=== PATIENT | female | born 1955 | race Caucasian/White ===

== ENCOUNTER → 2016-07-06 | Outpatient (CLI) | payer MEDICARE ==
[~2016-07-06] MED LIST: CITALOPRAM HBR40 M1; CLARITIN10 M3; GABAPENTIN400 MG PO; GLUCOPHAGE500 MG; GLUCOTROL10 MG PO; HCTZ PO; HUMALOG MI100 UNIT/6; IBUPROFEN800 MG PO; LEVOXYL200 MC1 PO; LIPITOR40 MG PO; MULTI VITAMIN1 EACH PO; ST. JOSEPH ASP325 MG PO; TOPROL XL100 MG PO; VITAMIN C1000 M2 PO; ZESTRIL40 MG PO
--- NOTE | ~2016-07-06 | CR63 ---
[facility] A Service of [facility] & [facility] RADIOLOGY TEXT RESULTS PATIENT: AGUSTIN SOTO LOCATION: [facility] : 59 UNIT #: [id number] AGE: [address]: Fernando Correa MD SEX: F ORDER DR: [id number] [facility] [address] [place], [place] [address] [id number] O MR#: [id number] Acc #: [id number] NAME: AGUSTIN SOTO. : 1955 SEX: F STUDY DATE/TIME: 07/06/2016 8:17 UNIT: [facility] ROOM: STUDY DESCRIPTION: CR Chest 2 View Attending Physician: Fernando Correa M.D. Referring Physician: Fernando Correa M.D. Ordering Physician: Fernando Correa M.D. Primary Care Physician: Jodie Bradley A.P.R.N. MEDICAL IMAGING REPORT This report is preliminary unless electronic signature is present EXAM Two-view chest, 07/06/2016 HISTORY 60-year-old female for preoperative respiratory clearance prior to gastric Lap-Band surgery and possible paraesophageal hernia repair. Morbid obesity. Essential hypertension. Shortness of breath. COMPARISON Chest, 08/07/2008 FINDINGS 2 views of the chest demonstrate clear lungs. No pleural effusion or pneumothorax. Heart size and mediastinum are normal. Pulmonary vasculature normal. IMPRESSION No acute cardiopulmonary findings. Dictated by... Chris Marie M.D. THIS IS AN ELECTRONICALLY VERIFIED REPORT Chris Marie M.D. at 07/06/2016 6:37 PM Deepa TD: 07/06/2016 11:25 JOB #: [id number] MEDICAL IMAGING REPORT Page 1 of 1 COPY
--- NOTE | ~2016-07-06 | EKG ---
PATIENT: AGUSTIN SOTO UNIT #: [id number] Ventricular Rate: 99 BPM Atrial Rate: 99 BPM P-R Interval: 150 ms QRS Duration: 92 ms Q-T Interval: 368 ms QTC Calculation(Bezet): 472 ms P [place]: 65 degrees Calculated R [place]: -14 degrees Calculated T [place]: 52 degrees Diagnosis Line: Normal sinus rhythm Diagnosis Line: Cannot rule out Anterior infarct , age Diagnosis Line: undetermined Diagnosis Line: Abnormal ECG Diagnosis Line: No previous ECGs available Diagnosis Line: Confirmed by GENEVA KUNZ MD ([id number]) on Diagnosis Line: 07/06/2016 4:39:09 PM INTERPRETING MD: ZE MORENO
--- NOTE | ~2016-07-06 | CR97 ---
[facility] A Service of [facility] RADIOLOGY TEXT RESULTS PATIENT: AGUSTIN SOTO LOCATION: [facility] : 59 UNIT #: [id number] AGE: [address]: Fernando Correa MD SEX: F ORDER DR: [id number] [place] [id number] [facility] [place], [place] [address] [id number] O MR#: [id number] Acc #: [id number] NAME: AGUSTIN SOTO. : 1955 SEX: F STUDY DATE/TIME: 07/06/2016 8:40 UNIT: [facility] ROOM: STUDY DESCRIPTION: CR Esophagram Attending Physician: Fernando Correa M.D. Referring Physician: Fernando Correa M.D. Ordering Physician: Fernando Correa M.D. Primary Care Physician: Jodie Bradley A.P.R.N. MEDICAL IMAGING REPORT This report is preliminary unless electronic signature is present EXAM Esophagram 07/06/2016 INDICATIONS 60-year-old female presenting for preop evaluation for lap-band placement. Morbid obesity. Hypertension, short of breath. Symptoms began today. TECHNIQUE Spot fluoroscopic views of the esophagus were obtained in various projections after the patient ingested gas crystals and thick and thin liquid barium on 07/06/2016. COMPARISON STUDIES No comparisons. FINDINGS The notes indicate 1.4 minutes of fluoroscopy time was used in the case. Approximately 72 spot fluoroscopic views from the procedure were saved to the DR PACS. The esophagus demonstrates an unremarkable primary stripping wave. No significant secondary or tertiary contractions identified. No focal stricture, mucosal abnormality or esophageal mass. No hiatal hernia. IMPRESSION 1. Essentially negative esophagram. Notes indicate 1.4 minutes of fluoroscopy time was used in the case. Approximately 72 spot fluoroscopic views saved to the DR PACS. Dictated by... Claude Hernandez M.D. [facility] A Service [facility] RADIOLOGY TEXT RESULTS PATIENT: AGUSTIN SOTO LOCATION: [facility] : 59 UNIT #: [id number] AGE: [address]: Fernando Correa MD SEX: F ORDER DR: THIS IS AN ELECTRONICALLY VERIFIED REPORT Claude Hernandez M.D. at 07/08/2016 5:40 PM KELLIE/mariam TD: 07/06/2016 18:25 JOB #: [id number] MEDICAL IMAGING REPORT Page 1 of 1 COPY
[2016-07-06 09:47] LABS: HEMATOCRIT 39.9 % (35.0-45.0); HEMOGLOBIN 12.7 gm/dL (12.0-16.0); MEAN CELL VOLUME 89.6 FL (83-96); MEAN CORPUSCULAR HEMOGLOBIN 28.4 PG (28-34); MEAN CORPUSCULAR HGB CONC 31.7 g/dL (30-36); MEAN PLATELET VOLUME 8.4 FL (6.5-11.5); RED BLOOD COUNT 4.46 X10e (3.90-5.30); RED CELL DISTRIBUTION WIDTH 14.1 % (11.0-15.5); WHITE BLOOD COUNT 13.9 X10e3 (4.0-10.5)
[2016-07-06 10:32] LABS: ALBUMIN SERUM 3.6 g/dL (3.5-5.0); BILIRUBIN,TOTAL 0.5 mg/dL (0.2-2.0); BUN/CREATININE RATIO 11.66; CALCIUM SERUM 9.6 mg/dL (8.4-10.2); CREATININE SERUM 1.2 mg/dL (0.6-1.4); GLOM FILT RATE Estimated 49.8 mL/min (>60); POTASSIUM 4.7 mmol/L (3.5-5.1); PROTEIN TOTAL SERUM 6.9 g/dL (6.0-8.3)
== END | disposition home or self-care (01) ==
LOC: CAMB 07:50
PROVIDERS: Surgery
DX: Z01.818 Encounter for other preprocedural examination (principal); E66.01 Morbid (severe) obesity due to excess calories
CPT/HCPCS: 36415; 71020; 74220; 80053; 80061; 84443; 85027; 93005

== ENCOUNTER → 2016-07-21 | Day surgery (SDC) | payer MEDICARE ==
--- NOTE | ~2016-07-21 | OR ---
Unit #: [id number] #: [id number] Patient: AGUSTIN SOTO [id number] [address] [address] [id number] O MR#: [id number] NAME: AGUSTIN SOTO ROOM: Date of Procedure: 07/21/2016 Admission Date: 07/21/2016 Surgeon: Fernando Correa M.D. : 1955 Attending Physician: Fernando Correa M.D. Primary Care Physician: Jodie Bradley A.P.R.N. OPERATIVE REPORT PREOPERATIVE DIAGNOSIS Chronic morbid obesity, body mass index of 55. POSTOPERATIVE DIAGNOSES 1. Chronic morbid obesity, body mass index of 55. 2. Paraesophageal hiatal hernia. PROCEDURE PERFORMED 1. Laparoscopic adjustable gastric band. 2. Laparoscopic paraesophageal hiatal hernia repair. VISUALLY IMPAIRED TEACHER Jacob Cornell M.D. ANESTHESIA General endotracheal anesthesia. ESTIMATED BLOOD LOSS Minimal. IV FLUIDS 800 crystalloid. COMPLICATIONS None. INDICATIONS FOR PROCEDURE The patient is a 60-year-old with chronic morbid obesity. DESCRIPTION OF PROCEDURE The patient was taken to the operating room and placed in supine position. General anesthesia was induced. The abdomen was prepped and draped. A 3-cm incision was then made left of the midline. A 10-mm Visiport was then placed intraabdominal under direct vision. The abdomen was insufflated to 15 mmHg with CO2. The patient was then placed in a steep reversed Trendelenburg. General inspection of the abdomen revealed what appeared to be a paraesophageal hernia. This was identified with a defect at the diaphragm using anterior palpation with the instrument. We then made a small incision in the subxiphoid region. A Elodia liver retractor was then placed intraabdominal and used to retract the left lobe of the liver upward to further expose the paraesophageal hernia and GE junction. I then placed a 5-mm port in the right upper quadrant, a 10-mm Unit #: [id number] #: [id number] Patient: AGUSTIN SOTO port in the left upper quadrant, and another 5-mm port in the left lower quadrant. The stomach was retracted medial and downward. Upon retracting the stomach, we took down the paraesophageal ligament, exposing the right and left aldair at the paraesophageal hernia. Any hernia sac was reduced. We then repaired the paraesophageal hernia using interrupted #0 Ethibond sutures in a unvxis-tc-brtew type fashion. This formed a snug repair to the anterior esophagus. We then retracted the stomach medially and further exposed the angle of His using Bovie electrocautery. The stomach was then retracted laterally. We then took down the hepatogastric ligament with Bovie electrocautery. This exposed the right aldair. Using blunt dissection, I created a retrogastric tunnel from this point to the angle of His. The band was then placed intraabdominal through the 10-mm port site. This was then brought through the retrogastric tunnel in a pars flaccida technique. The band was then closed anteriorly to form a 20-mL to 25-mL anterior gastric pouch. The fundus was then secured to the anterior pouch to prevent movement around the stomach using two interrupted #0 Ethibond sutures. A third suture was then used as a gathering stitch from the lesser curve to the anterior stomach, gathering and imbricating the remaining fundus of the stomach. The tubing was then brought out through the midline 10-mm port site. All ports and the Elodia liver retractor were removed under direct vision with no evidence of abdominal hemorrhage. A polypropylene mesh was then secured to the posterior face of the laparoscopic band port. This was secured using #0 Ethibond suture. This was then cut to shape. The port was then connected to the tubing and placed into a subcutaneous pocket just anterior to the rectus sheath. Its position was then confirmed. All tubing was then placed intraabdominal. The wounds were then closed with interrupted 4-0 Vicryl. The patient tolerated the procedure well and was sent to the recovery room in good condition. Dictated by... Gray Alvarez/daryn TD: 07/21/2016 22:49 JOB #: [id number] OPERATIVE REPORT Page 1 of 1 X Fernando Correa MD X PROCEDURE OPERATIVE NOTE
--- NOTE | ~2016-07-21 | CR7 ---
[facility] A Service of [facility] & [facility] RADIOLOGY TEXT RESULTS PATIENT: AGUSTIN SOTO LOCATION: [facility] : 59 UNIT #: [id number] AGE: [address]: Fernando Correa MD SEX: F ORDER DR: [id number] [facility] [address] [place], [place] [address] [id number] O MR#: [id number] Acc #: [id number] NAME: AGUSTIN SOTO : 1955 SEX: F STUDY DATE/TIME: 07/21/2016 11:19 UNIT: [facility] ROOM: STUDY DESCRIPTION: CR Abdomen Single AP View Attending Physician: Fernando Correa M.D. Ordering Physician: Fernando Correa M.D. Primary Care Physician: Jodie Bradley A.P.R.N. MEDICAL IMAGING REPORT This report is preliminary unless electronic signature is present EXAM Abdomen one-view 07/21/2016 1119 hours HISTORY Morbid obesity. Status post lap-band placement today. Abdominal pain. COMPARISON Preop esophagram 07/06/2016 FINDINGS Single supine view of the abdomen excludes the right flank and the pelvis. There is a new lap-band present overlying the left T11 costovertebral junction oriented at 52 degrees from vertical. Radiopaque tubing courses towards the right and then inferiorly. I cannot clearly define the distal port. No bowel obstruction seen. There is mild linear atelectasis at the left base. IMPRESSION 1. Postop lap-band placement overlying the T11 costovertebral junction oriented at 52 degrees from vertical. Radiopaque tubing courses rightward and then inferiorly with tubing terminating over the lower lumbar spine. I cannot clearly see the port which may be outside the field of view. 2. No bowel obstruction. 3. Linear atelectasis at the left lung base. Dictated by... Flaquita Morrissey M.D. THIS IS AN ELECTRONICALLY VERIFIED REPORT Flaquita Morrissey M.D. at 07/21/2016 2:29 PM VON/[facility] A Service of [facility] & [facility] RADIOLOGY TEXT RESULTS PATIENT: AGUSTIN SOTO LOCATION: [facility] : 59 UNIT #: [id number] AGE: [address]: Fernando Correa MD SEX: F ORDER DR: TD: 07/21/2016 11:50 JOB #: [id number] MEDICAL IMAGING REPORT Page 1 of 1 COPY
[2016-07-21 08:02] LABS: HEMATOCRIT 36.5 % (35.0-45.0); HEMOGLOBIN 11.9 gm/dL (12.0-16.0); MEAN CELL VOLUME 87.8 FL (83-96); MEAN CORPUSCULAR HEMOGLOBIN 28.5 PG (28-34); MEAN CORPUSCULAR HGB CONC 32.5 g/dL (30-36); MEAN PLATELET VOLUME 8.1 FL (6.5-11.5); RED BLOOD COUNT 4.16 X10e (3.90-5.30); RED CELL DISTRIBUTION WIDTH 13.5 % (11.0-15.5); WHITE BLOOD COUNT 15.5 X10e3 (4.0-10.5)
== END | disposition home or self-care (01) ==
LOC: CSUR 06:53
PROVIDERS: Surgery
DX: E66.01 Morbid (severe) obesity due to excess calories (principal); K44.9 Diaphragmatic hernia without obstruction or gangrene; E11.9 Type 2 diabetes mellitus without complications; I10 Essential (primary) hypertension; I25.10 Atherosclerotic heart disease of native coronary artery without angina pectoris; I25.2 Old myocardial infarction; E78.5 Hyperlipidemia, unspecified; F32.9 Major depressive disorder, single episode, unspecified; Z68.43 Body mass index [BMI] 50.0-59.9, adult; Z79.4 Long term (current) use of insulin; Z79.82 Long term (current) use of aspirin; Z79.899 Other long term (current) drug therapy; Z90.49 Acquired absence of other specified parts of digestive tract; Z90.89 Acquired absence of other organs; Z95.1 Presence of aortocoronary bypass graft; Z95.5 Presence of coronary angioplasty implant and graft; Z98.51 Tubal ligation status
CPT/HCPCS: 74000; 82947; 85027; C1781; J0330; J0690; J1650; J1885; J2250; J2405; J2710; J3010